=== PATIENT | female | born 1990 | race Caucasian/White ===

== ENCOUNTER 2019-07-25 01:18 | Emergency (ER) | payer MEDICAID, OTHER ==
[2019-07-25] MEDS ORDERED: Ondansetron 4 MG/2 ML SDV IM ONE (01:47)
--- NOTE | 2019-07-25 01:49 | EDM.PDOCBH ---
ED HPI GENERAL MEDICAL PROBLEM - General Chief Complaint: Behavioral/Psych Stated Complaint: ANXIETY Time Seen by Provider: 07/25/19 01:48 Source of Information: Reports: Patient History Limitations: Reports: No Limitations - History of Present Illness INITIAL COMMENTS - FREE TEXT/NARRATIVE: Anxiety attack for 2 hrs.Sudden onset,unable to calm down. Yaa has a h/o anxiety disorder.She endorses dry heaving. No other systems were contributory - Related Data Allergies Allergy/AdvReac Type Severity Reaction Status Date / Time codeine Allergy Hives Verified 07/25/19 01:24 lamotrigine [From Lamictal] Allergy Other Verified 07/25/19 01:24 Seasonal Allergied Allergy Cannot Uncoded 07/25/19 01:24 Remember Home Meds: Home Meds Albuterol [Ventolin HFA] 2 puff INH Q4H PRN 03/26/14 [History] FLUoxetine HCl [Prozac] 40 mg PO DAILY 07/25/19 [History] Methylphenidate [Concerta] 54 mg PO DAILY 07/25/19 [History] hydrOXYzine pamoate [Vistaril] 25 mg PO TID 07/25/19 [History] Past Medical History - Past Health History Medical/Surgical History: Denies Medical/Surgical History HEENT History: Reports: Allergic Rhinitis Respiratory History: Reports: Asthma Other Respiratory History: lungs clear Gastrointestinal History: Reports: GERD Genitourinary History: Reports: None [employer] PROGRAM [employer]IST History: Reports: Ectopic , Other [employer] PROGRAM SPECIALIST History: Psychiatric History: Reports: Addiction, Anxiety, Depression, Panic Attack, Psych Hospitalization(s), PTSD, Suicide Attempt Other Psychiatric History: hx ETOH abuse Oncologic (Cancer) History: Reports: Thyroid - Past Surgical History GI Surgical History: Reports: Cholecystectomy Other GI Surgeries/Procedures: laporotomy Female Surgical History: Reports: Hysterectomy Oncologic Surgical History: Reports: None Social & Family History - Family History Family Medical History: Noncontributory - Tobacco Use Smoking Status *Q: Current Every Day Smoker Years of Tobacco use: 15 Packs/Tins Daily: 1 - Caffeine Use Caffeine Use: Reports: Energy Drinks, Soda - Recreational Drug Use Recreational Drug Type: Reports: Marijuana/Hashish - Living Situation & Occupation Living situation: Reports: Other Occupation: Employed ED ROS GENERAL - Review of Systems Review Of Systems: Comprehensive ROS is negative, except as noted in HPI. ED EXAM, BEHAVIORAL HEALTH - Physical Exam Exam: See Below Exam Limited By: No Limitations General Appearance: Alert, WD/WN, No Apparent Distress Ears: Normal External Exam Throat/Mouth: Normal Inspection Head: Atraumatic Neck: Normal Inspection Respiratory/Chest: Respiratory Distress Neurological: Alert Psychiatric: Restless, Tearful, Agitated Skin Exam: Warm COURSE, BEHAVIORAL HEALTH COMP - Course Vital Signs: Last Vital Signs Temp 97.6 F 07/25/19 01:18 Pulse 89 07/25/19 02:41 Resp 20 07/25/19 02:41 BP 117/59 L 07/25/19 02:41 Pulse Ox 97 07/25/19 02:41 Orders, Labs, Meds: Medications Discontinued Medications Generic Name Dose Route Start Last Admin Trade Name Mervat PRN Reason Stop Dose Admin Lorazepam 1 mg 07/25/19 02:00 07/25/19 02:01 Ativan IM 1 mg ONETIME CANDACE Administration Ondansetron HCl 4 mg 07/25/19 01:47 07/25/19 02:01 Zofran IM 07/25/19 01:48 4 mg ONETIME ONE Administration Departure - Departure Time of Disposition: 07:26 Disposition: Home, Self-Care 01 Condition: Good Clinical Impression: Anxiety - Discharge Information Instructions: Ondansetron injection, Panic Attack, [id number], Lorazepam injection Referrals: Leonel Sidhu MD [Primary Care Provider] - Forms: ED Department Discharge Additional Instructions: Activity as tolerated. Continue regular medications as prescribed. Follow up with psychologist this week as scheduled. Sepsis Event Note - Evaluation Sepsis Screening Result: No Definite Risk - Focused Exam Vital Signs: Vital Signs Temp Pulse Resp BP Pulse Ox 07/25/19 02:41 89 20 117/59 L 97 07/25/19 01:18 97.6 F 104 H 36 H 120/85 100 Date Exam was Performed: 07/25/19 Time Exam was Performed: 07:25 - Problem List & Annotations (1) Anxiety SNOMED Code(s): 62573861 Code(s): F41.9 - ANXIETY DISORDER, UNSPECIFIED Status: Acute - Problem List Review Problem List Initiated/Reviewed/Updated: Yes - Assessment/Plan Plan: Lorazepam 1 mg IM and Zofran. DC home.
[2019-07-25] MEDS ORDERED: LORazepam 2 MG/ML SDV IM SCH (02:00)
[2019-07-25 03:49] VITALS: BP 117/59; PULSE 89
== END 2019-07-25 02:54 | disposition home or self-care (01) ==
LOC: FB.ED 01:18
DX: F41.9 Anxiety disorder, unspecified (principal); J45.909 Unspecified asthma, uncomplicated; F17.210 Nicotine dependence, cigarettes, uncomplicated; Z88.5 Allergy status to narcotic agent; Z88.8 Allergy status to other drugs, medicaments and biological substances; Z91.048 Other nonmedicinal substance allergy status; Z79.899 Other long term (current) drug therapy
CPT/HCPCS: 96372; 99283; J2060; J2405